=== PATIENT | female | born 1995 | race Caucasian/White ===

== ENCOUNTER 2017-03-31 03:08 | Emergency (ER) | payer OTHER ==
[2017-03-31 03:15] VITALS: BP 127/84
[2017-03-31] MEDS ORDERED: HYDROCODONE/APAP 5/325 TAB ONE (03:29)
[2017-03-31] MEDS ORDERED: IBUPROFEN 600 MG TAB PO ONE ×2 (03:29→03:31)
[2017-03-31] MEDS ORDERED: HYDROCODONE/APAP 5/325 TAB PO ONE (03:33)
--- NOTE | 2017-03-31 03:37 | EDPHY ---
H & P Stated Complaint: Cough for 2 weeks and now having right side rib pain Time Seen by Provider: 03/31/17 03:18 HPI/ROS: HPI The patient presents with chest wall pain which is in her sternal region as well as back which has been present for the last 1 day and has been intermittent , worse with changes in position and relieved with rest. Also worse with deep inspiration and coughing. She has been sick for a while with a sore throat, cough and congestion. She had a fever a few days ago. She was not able to sleep full tonight, so comes in now. She took ibuprofen several hours ago without much improvement. REVIEW OF SYSTEMS Constitutional: Fever several days ago, now resolved Eyes: No discharge. ENT: Positive for sore throat. Cardiovascular: No chest pain, no palpitations. Respiratory: Positive for cough, no shortness of breath. Gastrointestinal: No abdominal pain, no vomiting. Genitourinary: No hematuria. Musculoskeletal: No back pain. Skin: No rashes. Neurological: No headache. PMHx: Healthy Soc Hx: College student PHYSICAL General Appearance: Alert, no distress Eyes: Pupils equal and round no pallor or injection ENT, Mouth: Mucous membranes moist Respiratory: There are no retractions, lungs are clear to auscultation Cardiovascular: Regular rate and rhythm Gastrointestinal: Abdomen is soft and non-tender, no masses, bowel sounds normal Neurological: A&O, moves all extremities Skin: Warm and dry, no rashes Musculoskeletal: Neck is supple non tender Extremities: symmetrical, full range of motion Psychiatric: Patient is oriented X 3, there is no agitation Source: Patient Exam Limitations: No limitations - Personal History LMP (Females 10-55): 15-21 Days Ago Current Tetanus/Diphtheria Vaccine: Yes Current Tetanus Diphtheria and Acellular Pertussis (TDAP): Yes Tetanus Vaccine Date: student - Medical/Surgical History Hx Asthma: No Hx Chronic Respiratory Disease: No Hx Diabetes: No Hx Cardiac Disease: No Hx Renal Disease: No Hx Cirrhosis: No Hx Alcoholism: No Hx HIV/AIDS: No Hx Splenectomy or Spleen Trauma: No Other PMH: depression anxiety, breast tissue removal - Social History Smoking Status: Never smoked Constitutional: Initial Vital Signs Temperature (C) 37.5 C 03/31/17 03:12 Heart Rate 116 H 03/31/17 03:12 Respiratory Rate 16 03/31/17 03:12 Blood Pressure 127/84 H 03/31/17 03:12 O2 Sat (%) 100 03/31/17 03:12 O2 Delivery Mode Room Air Allergies/Adverse Reactions: Sulfa (Sulfonamide Antibiotics) Allergy (Intermediate, Verified 03/31/17 03:14) Home Medications: Medication Instructions Recorded Amphet Asp and D/Amphet [Adderall 03/15/15 10 MG (RX)] Cymbalta 03/15/15 Vistaril 03/15/15 Sandra 28 Tablet 03/31/17 Medical Decision Making - Diagnostics EKG Interpretation: EKG: Complete interpretation has been separately recorded in the [facility] archive. Summary impression: Sinus tachycardia with rate of 112 Imaging Results: Chest x-ray two view shows no cardiomegaly, no infiltrate, no effusion, interpreted by me, radiology interpretation is pending. Differential Diagnosis: 22-year-old healthy woman presents with chest wall pain which is sharp, pleuritic, worse with movement, radiates throughout her chest. She has been sick for the last 1-2 weeks with cough, congestion, sore throat as well as fever for 1 day. Differential diagnosis includes influenza or other viral type illness with costochondritis, pericarditis, pneumonia, pneumothorax. In the emergency department, patient was given ibuprofen and Vicodin for her pain with some improvement. Chest x-ray and EKG are both unremarkable except for sinus tachycardia. I feel she is likely suffering from costochondritis. I have considered pulmonary embolism, however she does not have any risk factors such is travel, immobilization, fracture, recent surgery, personal or family history of DVT PE. At time of discharge, she is still slightly tachycardic at about 110. However remainder of her vital signs are normal. I feel this could be due to some degree of dehydration, anxiety, low-grade fever. I have explained this to her. She is feeling well enough to go home and asks for a note for school. I will have her follow-up in the next 1-2 days for recheck of her heart rate. - Data Points Laboratory Results: 03/31/17 03:15 Nasal Influenza A PCR Pending Nasal Influenza B PCR Pending Medications Given: Discontinued Medications Hydrocodone Bitart/Acetaminophen ([place] 5/325) 1 tab PO EDNOW ONE Stop: 03/31/17 03:34 Last Admin: 03/31/17 03:33 Dose: 1 tab Ibuprofen (Motrin) 600 mg PO EDNOW ONE Stop: 03/31/17 03:32 Last Admin: 03/31/17 03:32 Dose: 600 mg Departure - Departure Disposition: Home, Routine, Self-Care Clinical Impression: Chest wall pain, Cough Condition: Good Instructions: Costochondritis (ED) Additional Instructions: Please return to the emergency department if your worse in any way. You should take ibuprofen 400 mg and acetaminophen 650 mg every 6 hours as needed for pain. You should follow up with your regular doctor in 1-2 days for repeat check of your heart rate. Referrals: Swapna Alvarez NP [Primary Care Provider] - As per Instructions Stand Alone Forms: School Excuse
--- NOTE | 2017-03-31 03:40 | CPEKG ---
Heart Rate: 112 RR Interval: 536 P-R Interval: 156 QRSD Interval: 100 QT Interval: 332 QTC Interval: 453 P [place]: 79 QRS [place]: 87 T Wave [place]: -4 EKG Severity - OTHERWISE NORMAL ECG - EKG Impression: SINUS TACHYCARDIA EKG Impression: VENTRICULAR PREMATURE COMPLEX Electronically Signed By: Linda Mane 31-Mar-2017 07:15:18
[2017-03-31 04:39] VITALS: RESP 18; TEMP 98.6; O2SAT 96
[2017-03-31 05:37] VITALS: PULSE 99
== END 2017-03-31 05:25 | disposition home or self-care (01) ==
DX: R07.89 Other chest pain (principal); R05 Cough

== ENCOUNTER → 2017-03-31 | Outpatient (CLI) | payer OTHER ==
[~2017-03-31] MED LIST: IOPAMIDOL (ISOVUE 370) 100 ML BTL IV ONE
== END ==
LOC: FIMAGING 15:07
PROVIDERS: ATTEND Internal Medicine
DX: R07.9 Chest pain, unspecified (principal)
CPT/HCPCS: Q9967

== ENCOUNTER → 2018-08-24 | Outpatient (CLI) | payer OTHER | LOC: FIMAGING 14:45 | PROVIDERS: ATTEND Internal Medicine | DX: R09.1 Pleurisy (principal) | CPT/HCPCS: Q9967 ==